=== PATIENT | female | born 1960 | race Caucasian/White ===

== ENCOUNTER → 2017-01-26 | Outpatient (CLI) | payer OTHER ==
[~2017-01-26] MED LIST: CELEBREX200 MG PO; EXFORGE HCT PO; HYDROCHLOROTHIA25 MG PO; HYZAAR 100-21 TABLET PO; LIPITOR10 MG PO; METOPROLOL TART50 MG PO; MOBIC15 MG PO; NORVASC10 MG PO; NUCYNTA50 MG PO; PENNSAID150 ML TP; SAVELLA100 MG PO; SYNTHROID137 MCG PO; XYLOCAINE 5%35.44 GM TP
== END | disposition home or self-care (01) ==
DX: M17.11 Unilateral primary osteoarthritis, right knee (principal); R26.2 Difficulty in walking, not elsewhere classified; M25.561 Pain in right knee; M25.661 Stiffness of right knee, not elsewhere classified; M62.81 Muscle weakness (generalized)
CPT/HCPCS: 97110 GP; 97150 GO; 97161 GP; 97165 GO; G8978 GP; G8979 GP; G8980 GP; G8987 GO; G8988 GO; G8989 GO

== ENCOUNTER 2017-02-09 08:30 | Inpatient (IN) | payer OTHER ==
[~2017-02-09] VITALS: Ht 170.2 cm; Wt 131.3 kg
[2017-02-09 09:28] VITALS: BP 143/76
[2017-02-09 15:38] LABS: POINT-OF-CARE METER ID UU13113675
[2017-02-09 16:03] LABS: HEMATOCRIT 41.4 % (36.0-46.0); MCH 26.2 PG (29.0-34.0); MCHC 32.4 G/DL (30.0-36.0); PLATELET COUNT 213 K/uL (156-360); RBC DIS.WIDTH-CV 14.1 % (11.8-14.6); RBC DIS.WIDTH-SD 41.4 % (39-53); RED BLOOD COUNT 5.11 M/uL (3.80-5.20); WHITE BLOOD COUNT 6.9 K/uL (4.1-10.2)
[2017-02-09 18:10] VITALS: BP 138/63
[2017-02-09 20:57] VITALS: BP 146/81
[2017-02-10 00:20] VITALS: BP 140/65
[2017-02-10 04:00] VITALS: BP 130/67
[2017-02-10 06:34] LABS: HEMATOCRIT 39.8 % (36.0-46.0); MCV 81.7 FL (83-99)
[2017-02-10 06:58] LABS: ANION GAP 6 MEQ/L (2-14); CHLORIDE 102 MEQ/L (99-109); GFR ESTIMATE (CALCULATED) > 59 mL/min/; GLUCOSE 139 mg/dL (70-99); POTASSIUM 3.9 MEQ/L (3.7-5.4); SAMPLE HEMOLYSIS CHECK 0; SAMPLE ICTERIC CHECK 0; SAMPLE LIPEMIA CHECK 0; SODIUM 138 MEQ/L (136-147); UREA NITROGEN (BUN) 10 mg/dL (9-23)
[2017-02-10 08:17] VITALS: BP 131/80
[2017-02-10 11:41] VITALS: BP 123/58
[2017-02-10 15:50] VITALS: BP 127/60
[2017-02-10 20:28] VITALS: BP 130/66
[2017-02-11 00:10] VITALS: BP 128/60
[2017-02-11 04:30] VITALS: BP 138/63
[2017-02-11 05:40] LABS: HEMATOCRIT 41.1 % (36.0-46.0); MCV 81.5 FL (83-99)
[2017-02-11 08:04] VITALS: BP 132/62
[2017-02-11] MEDS ORDERED: LOVENOX40 MG/0.4 SC (08:45)
[2017-02-11] MEDS ORDERED: OXYCONTIN10 MG PO (08:45)
[2017-02-11] MEDS ORDERED: ENDOCET 5-3251 EACH PO (08:45)
[2017-02-11 11:32] VITALS: BP 96/55
[2017-02-11 14:13] VITALS: BP 99/53
== END 2017-02-11 14:20 | DRG 470 ==
LOC: 2SOUTH → 3WEST 17:13
PROVIDERS: Orthopaedic Surgery
PROC: 0SRC0J9 Replacement of Right Knee Joint with Synthetic Substitute, Cemented, Open Approach (ICD-10-PCS; principal; 2017-02-09)
DX: M17.11 Unilateral primary osteoarthritis, right knee (principal); Z68.42 Body mass index [BMI] 45.0-49.9, adult; I10 Essential (primary) hypertension; E78.00 Pure hypercholesterolemia, unspecified; G47.30 Sleep apnea, unspecified; M79.7 Fibromyalgia; Z83.3 Family history of diabetes mellitus
CPT/HCPCS: 73560; 80048; 82948; 85014; 85018; 85027; 97530 GO; 97530 GP; C1713; J0131; J0690; J1170; J1650; J2250; J2405; J3010; J7050